=== PATIENT | female | born 1975 | race Caucasian/White ===

== ENCOUNTER 2023-07-02 03:18 | Emergency (ER) | payer OTHER, SELFPAY ==
[2023-07-02 03:20] VITALS: BP 118/65; PULSE 73; RESP 13; TEMP 36.8; O2SAT 97; BMI 43.2
--- NOTE | 2023-07-02 03:28 | ED.VIS.CHEST ---
HPI History of Present Illness Chief Complaint: Chest Pain Onset/Context/Timing Associated Symptoms: Positive for Nausea Narrative Narrative: 48-year-old female past medical history of tachycardia for which she takes metoprolol with squeezing chest pain on the left side since around 9:30 PM last evening. This was almost 6 hours ago. She is slightly nauseated but denies any vomiting. No shortness of breath, no exacerbating or alleviating factors. She might have family history of coronary artery disease but no heart attacks and early age. She denies any DVT or PE risk factors. She states that she had an episode of chest pain similar to this after COVID which they attributed to her H. pylori ulcers. [facility] Medical History COVID Tachycardia Home Medications metoprolol succinate 25 mg tablet,extended release 24 hr 12.5 mg PO DAILY 07/02/23 [History Last Taken Unknown] Allergy/AdvReac Type Severity Reaction Status Date / Time No Known Allergies Allergy Verified 07/02/23 03:19 Social History Smoking Status: Never smoker ROS ROS ED ROS Narrative Constitutional: No fever, no chills. HEENT: No sore throat. No neck pain. No loss of vision. No rhinorrhea. Cardiovascular: Left-sided squeezing chest pain. No palpitations. No pedal edema. Respiratory: No cough, no shortness of breath. Abdominal: No abdominal pain. Positive nausea. No vomiting. Genitourinary: No dysuria. No hematuria. Musculoskeletal: No myalgias. No arthralgias. Neurologic: No headaches. No dizziness. No lightheadedness. Skin: No rash. No change in color. Psychiatric: No depression. No anxiety. EXAM Physical Exam Narrative Exam Narrative: Afebrile. Vital signs noted. HEENT: Normocephalic. Atraumatic. PERRL, EOMI. Neck soft and supple. No point tenderness or step off. Cardiovascular: Regular rate and rhythm. No murmurs, rubs, or gallops appreciated. Respiratory: No tachypnea. Lungs clear to auscultation bilaterally. Gastrointestinal: Abdomen soft, nontender, with normoactive bowel sounds. No rebound or guarding. Neurological: Awake. Alert. Nonfocal, nonlateralizing. Skin: No rash. Normal color. No pallor. Musculoskeletal: No pedal edema. Full range of motion extremities. Const Vital Signs: 07/02/23 03:20 07/02/23 03:20 07/02/23 03:27 Temperature 98.2 F Temperature Source Oral Pulse Rate 73 Respiratory Rate 13 Respiratory Effort Normal Blood Pressure 118/65 Blood Pressure Mean 82 Pulse Ox 97 Oxygen Delivery Method Room Air 07/02/23 04:19 07/02/23 05:00 Temperature Temperature Source Pulse Rate 72 70 Respiratory Rate 17 15 Respiratory Effort Blood Pressure 123/74 H 115/67 Blood Pressure Mean 90 83 Pulse Ox 97 97 Oxygen Delivery Method Room Air Heart Score History: Slightly/Non-Suspicious ECG: Normal Age: >45 - <65 years Risk Factors: 1 or 2 Risk Factors Troponin: </= Normal Limit Score: 2 MDM MDM MDM Narrative Medical decision making narrative: I reviewed her prior ED visits, 7 years ago she did have chest pain with a heart score of 2 as she does today, she was discharged to follow-up with her primary. In the differential diagnosis is ACS/STEMI/non-STEMI. EKG was obtained and interpreted by myself independently as normal sinus rhythm at 77 bpm without ectopy or acute ST changes. No STEMI. I do feel that she does not require immediate PCI or heart catheterization. Serial troponins will be drawn. Although she is essentially PERC negative, I will obtain a D-dimer as pulmonary embolism is lower on the differential for her squeezing left-sided chest pain. I reviewed her laboratory work from today and she has normal white count 9.6, hemoglobin normal at 13.5, platelet count normal at 299, D-dimer is negative at less than 0.27, CMP shows chloride slightly elevated at 109 which I think is nonspecific, normal sodium of 140, normal potassium of 4.1, she has a normal BUN of 13 and creatinine also normal at 0.79, her initial high-sensitivity troponin is 4. 2-hour troponin is less than 3 for negative delta troponin. Upon repeat examination, she is resting comfortably. She states that she started feeling better after she took aspirin. Chest x-ray in 1 view interpreted by myself independently shows no pneumonia or pneumothorax. I do not feel antibiotics are indicated. Additionally, I reviewed the radiology report which confirms my independent interpretation of her chest x-ray. At this point in time, I do not feel that she requires observation or admission. I feel she can be discharged safely home with follow-up to her primary care provider. She will return with any increasing pain, new or worsening symptoms. Patient and boyfriend are agreeable to the plan. Disposition is discharged home in stable condition. History & Record Review Additional record(s) reviewed:: Prior ED visit and Prior labs Lab Data Attestation: I reviewed the patient's lab results. Labs: Laboratory Results - last 24 hr 07/02/23 07/02/23 03:25 05:35 WBC 9.6 RBC 4.58 Hgb 13.5 Hct 41.9 MCV 91.5 MCH 29.5 MCHC 32.2 RDW Std Deviation 42.7 RDW Coeff of Saroj 12.9 Plt Count 299 MPV 9.5 Immature Gran % (Auto) 0.200 Neut % (Auto) 59.3 Lymph % (Auto) 30.9 [place] % (Auto) 6.9 Eos % (Auto) 2.3 Baso % (Auto) 0.4 Absolute Neuts (auto) 5.7 Absolute Lymphs (auto) 2.95 Nucleated RBC % 0 D-Dimer Quant (PE/DVT) < 0.27 L Sodium 140 Potassium 4.1 Chloride 109 H Carbon Dioxide 27.0 Anion Gap 4 L BUN 13 Creatinine 0.79 Estim Creat Clear Calc 67.38 Est GFR (MDRD) Af Amer 98 Est GFR (MDRD) Non-Af 81 BUN/Creatinine Ratio 16.4 Glucose 104 Calcium 9.3 Troponin I High Sens 4 < 3 L Radiography Diagnostic Testing: Clinical Impression(s) from Imaging Studies Chest X-Ray 07/02/23 03:35 IMPRESSION: Minimal lingular atelectasis. Otherwise stable chest. Electronically Signed: Grisel Cabrera MD at 4:05 EDT , Discharge Plan Triage Chief Complaint: Chest Pain ED Provider: Jose Juan Sheikh Dx/Rx/DC Orders Clinical Impression: Squeezing chest pain, Chest pain Instructions: ED Chest Pain, Uncertain Cause Prescriptions: No Action metoprolol succinate 25 mg tablet extended release 24 hr 12.5 mg PO DAILY Primary Care Provider: Fili Golden Referrals: Fili Golden DO [Primary Care Provider] - 3-5 Days Disposition Disposition: Home, Self Care
--- NOTE | 2023-07-02 03:30 | EKG12_ITS ---
Test Reason : cp Blood Pressure : / mmHG Vent. Rate : 077 BPM Atrial Rate : 077 BPM P-R Int : 160 ms QRS Dur : 080 ms QT Int : 388 ms P-R-T Axes : 024 -25 005 degrees QTc Int : 439 ms Normal sinus rhythm Normal ECG Confirmed by BRIT MAIN, PARKER ([id number]), index editor SATURNINO CHANDLER ([id number]) on 07/05/2023 8:35:14 AM Referred By: Evelyn Confirmed By:FARTUN PEREA MD
[2023-07-02] MEDS: 0.9% Normal Saline 1,000 ML 1000 ML IV (03:34)
[2023-07-02] MEDS: Aspirin 81 MG TAB.CHEW 324 MG PO (03:34)
[2023-07-02 03:35] LABS: Absolute Lymphocyte Count 2.95 X10^3/uL (0.83-4.51); Absolute Neutrophil Count 5.7 X10^3/uL (2.0-7.7); Basophil# 0.04 X10^3/uL; Basophil% 0.4 % (0-1); Eosinophil# 0.22 X10^3/uL; Eosinophils% 2.3 % (0-5); Hematocrit 41.9 % (37-47); Hemoglobin 13.5 g/dL (12.0-15.0); Lymphocyte # 2.95 X10^3/ul (0.83-4.51); Lymphocyte % 30.9 % (19-41); Mean Corp Hgb Conc 32.2 g/dL (32-36); Mean Corpuscular Hgb 29.5 pg (27.0-32.0); Mean Corpuscular Volume 91.5 fL (81-99); Mean Platelet Vol. 9.5 fl (6.2-12.0); Monocyte# 0.66 X10^3/uL; Monocyte% 6.9 % (0-10); NRBC Flagged by Analyzer 0 % (0-5); Neutrophil # 5.66 X10^3/uL (2.7-7.7); Neutrophil % 59.3 % (47-70); Platelet Count 299 K/mm3 (150-450); RBC Distribution Width CV 12.9 % (11.6-14.6); RBC Distribution Width SD 42.7 fl (35.1-43.9); Red Blood Count 4.58 M/mm3 (4.2-5.4); White Blood Count 9.6 K/mm3 (4.4-11.0)
--- NOTE | 2023-07-02 03:35 | RAD_ITS ---
STUDY: X-RAY CHEST REASON FOR EXAM: Female, 48 years old. Chest pain TECHNIQUE: Single AP portable view of the chest. COMPARISON: September 21, 2016 chest x-ray FINDINGS: There is a minimal focus of left lingular atelectasis. There is no demonstrated pleural abnormality. Normal size heart. Normal mediastinum and tara. Normal visualized pulmonary arteries. Normal visualized aortic arch and descending thoracic aorta. There are diffuse degenerative changes of the visualized thoracic spine. Normal visualized ribs, clavicles, and shoulders. There is no demonstrated abnormality of the visualized soft tissue structures of the upper abdomen. RAD/Chest 1 View (Portable) IMPRESSION: Minimal lingular atelectasis. Otherwise stable chest. Electronically Signed: Grisel Cabrera MD at 4:05 EDT ,
[2023-07-02 04:09] LABS: Anion Gap 4 (5-15); BUN 13 mg/dL (7-18); BUN/Creat Ratio 16.4 RATIO (10-20); Calcium,Total 9.3 mg/dL (8.5-10.1); Chloride 109 mmol/L (98-107); Creatinine, Serum 0.79 mg/dL (0.55-1.02); EST Glomerular Filtration Rate 81 mL/min (>60); Est Glom Filt Rate - Afr Amer 98 mL/min (>60); Estimated Creatinine Clearance 67.38 ml/min; Glucose 104 mg/dL (74-106); Potassium 4.1 mmol/L (3.5-5.1); Sodium Level 140 mmol/L (136-145); Troponin-I HS (w/2H Reflex) 4 pg/mL (3.0-54.0)
[2023-07-02 04:19] VITALS: BP 123/74; PULSE 72; RESP 17; O2SAT 97
[2023-07-02 04:25] LABS: D-Dimer Quantitative (DVT/PE) < 0.27 FEU/ug/m (0.27-0.49)
[2023-07-02 05:00] VITALS: BP 115/67; PULSE 70; RESP 15; O2SAT 97
[2023-07-02 05:31] LABS: Reflex Troponin-HS? (from REC) Y
[2023-07-02 06:00] LABS: Troponin-I HS < 3 pg/mL (3.0-54.0)
[2023-07-02 06:22] VITALS: BP 114/42; PULSE 61; RESP 18; O2SAT 99
== END 2023-07-02 06:23 | disposition home or self-care (01) ==
PROVIDERS: Emergency Provider Emergency Medicine; PCP Student in an Organized Health Care Education/Training Program; Visit Provider Emergency Medicine
DX: R07.9 Chest pain, unspecified (principal); R11.0 Nausea; Z79.899 Other long term (current) drug therapy
CPT/HCPCS: 71045; 80048; 84484; 85025; 85379; 93005; 96360; 99285; J7030; A4216